=== PATIENT | female | born 1960 | race Caucasian/White ===

== ENCOUNTER → 2023-10-03 | Outpatient (CLI) | payer MEDICARE ==
[~2023-10-03] MED LIST: LIDOCAINE 1% MDV 20ML VIAL As Ordered ONE
[2023-10-03 09:47] VITALS: TEMP 97.8
[2023-10-03 10:30] VITALS: BP 164/67; O2SAT 98
== END ==
LOC: M IRPRO 09:42
PROVIDERS: ATTEND Physician Assistant
DX: E04.1 Nontoxic single thyroid nodule (principal)

== ENCOUNTER → 2023-11-04 | Outpatient (CLI) | payer MEDICARE ==
[~2023-11-04] MED LIST changes: +CETI-24 PO; +CETI10CH PO; +GLUT500C4 PO; +HYDR50TA70 PO; -LIDOCAINE 1% MDV 20ML VIAL As Ordered ONE; +MONT10TA97 PO; +ONDA-282 PO; +PROG1CAP8 PO; +RIZA10TA64 PO; +SYMB16INH INH; +TRAM-443 PO; +VENTAER INH; +VYVA1CAP PO; +ZYRTTAB8 PO
== END ==
LOC: M PLARAD 12:47
DX: Z12.89 Encounter for screening for malignant neoplasm of other sites (principal); R94.6 Abnormal results of thyroid function studies; D44.0 Neoplasm of uncertain behavior of thyroid gland; R59.9 Enlarged lymph nodes, unspecified
CPT/HCPCS: 78815; A9552

== ENCOUNTER → 2023-12-02 | Outpatient (CLI) | payer MEDICARE ==
[~2023-12-02] MED LIST changes: +LIDOCAINE 1% MDV 20ML VIAL As Ordered ONE; -TRAM-443 PO; +TRAM1TAB42 PO; +VALA500T5; +XIFA550T
[2023-12-02 08:27] VITALS: TEMP 98.5
[2023-12-02 09:18] VITALS: BP 148/70; O2SAT 100
== END ==
LOC: M IRPRO 07:59
PROVIDERS: ATTEND Otolaryngology
DX: D44.0 Neoplasm of uncertain behavior of thyroid gland (principal)

== ENCOUNTER → 2023-12-04 | Outpatient (CLI) | payer MEDICARE ==
[~2023-12-04] MED LIST changes: -LIDOCAINE 1% MDV 20ML VIAL As Ordered ONE
== END ==
LOC: M WHC 11:32
PROVIDERS: ATTEND Internal Medicine Medical Oncology
DX: N63.20 Unspecified lump in the left breast, unspecified quadrant (principal); R59.0 Localized enlarged lymph nodes; R94.6 Abnormal results of thyroid function studies; M85.89 Other specified disorders of bone density and structure, multiple sites; Z13.820 Encounter for screening for osteoporosis; R92.2 Inconclusive mammogram
CPT/HCPCS: 76641; 77066; 77080; G0279

== ENCOUNTER → 2023-12-04 | Outpatient (CLI) | payer MEDICARE | LOC: M WHC 07:52 | PROVIDERS: ATTEND Nurse Practitioner Family | DX: Z13.820 Encounter for screening for osteoporosis (principal); M85.89 Other specified disorders of bone density and structure, multiple sites ==